=== PATIENT | female | born 1935 | race Hispanic/Latino ===

== ENCOUNTER 2020-08-24 10:40 | Outpatient (CLI) | payer MEDICARE | END 2020-08-24 10:41 | disposition home or self-care (01) | LOC: SPVWC 10:40 | PROVIDERS: ATTEND Internal Medicine Hematology & Oncology | DX: Z12.31 Encounter for screening mammogram for malignant neoplasm of breast (principal) | CPT/HCPCS: 77067 ==

== ENCOUNTER 2020-10-06 10:44 | Outpatient (CLI) | payer MEDICARE ==
--- NOTE | 2020-10-06 11:51 | Ultrasound Report ---
ULTRASOUND BREAST LEFT LIMITED, 10/06/2020 CLINICAL INFORMATION / INDICATION: LEFT BREAST NODULE N63.20. TECHNIQUE: Targeted ultrasound evaluation was performed of the area of interest. COMPARISON: Bilateral mammography 08/24/20. FINDINGS: There is a benign-appearing cluster of microcysts at the 8:30 position 3 cm from the nipple. The abno rmality measures 6.7 mm in greatest dimension and corresponds to the site of the mammographically det ected nodule. No posterior features are identified and there is no internal vascularity on Doppler ex am. No suspicious sonographic abnormality is seen. IMPRESSION: Small benign cluster of microcysts at the 8:30 position corresponds to the mammographic f inding. Follow up recommendation: Routine yearly BI-RADS Category 2: Benign. A normal or "negative" report should not preclude biopsy or follow-up of a clinically suspicious find ing. Signer Name: Oscar Wilson MD Signed: 10/06/2020 11:47 AM Workstation Name: [employer]
== END 2020-10-06 10:45 | disposition home or self-care (01) ==
LOC: SPVWC 10:44
PROVIDERS: ATTEND Internal Medicine Hematology & Oncology
DX: C85.99 Non-Hodgkin lymphoma, unspecified, extranodal and solid organ sites (principal); N60.02 Solitary cyst of left breast; N63.20 Unspecified lump in the left breast, unspecified quadrant